=== PATIENT | male | born 1995 | race American Indian/Alaskan Native ===

== ENCOUNTER 2019-12-07 19:33 | Emergency (ER) | payer OTHER ==
[2019-12-07 19:53] VITALS: BP 106/64
[2019-12-07] MEDS ORDERED: NEOMY 3.5 MG/BACIT 400 UNITS/POLY B 5000 UNITS/GM OINT PACKET TP ONE (19:56)
[2019-12-07] MEDS ORDERED: DIPHtheria,PERTUSSIS(ACELL),TETANUS VACCINE/PF 0.5 ML VIAL IM ONE (19:56)
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
== END 2019-12-07 20:38 | disposition home or self-care (01) ==
LOC: ED 19:33
DX: M25.512 Pain in left shoulder (principal); S80.811A Abrasion, right lower leg, initial encounter; S70.212A Abrasion, left hip, initial encounter; V89.2XXA Person injured in unspecified motor-vehicle accident, traffic, initial encounter; Y93.89 Activity, other specified; Y92.410 Unspecified street and highway as the place of occurrence of the external cause; Y99.8 Other external cause status
CPT/HCPCS: 90471; 90715; 99282; A6250